=== PATIENT | male | born 1975 | race Caucasian/White ===

== ENCOUNTER 2017-09-01 04:50 | Emergency (ER) | payer SELFPAY ==
[2017-09-01 04:54] VITALS: BP 136/81; BMI 43.0
--- NOTE | 2017-09-01 05:20 | DR.GENAD ---
HPI - PCP Primary Care Physician: DENIA BURNETTE - Complaint/Symptoms Chief Complaint Doctors Comments: He came in to the E.D. to be seen because his glucmeter at home is reading high. He states that when this happens the BS is usually over 600. He should be taken Metformin 1000 mg BID. He is not compliant with this, nor with his diet, nr with accucheck. His last PCP's o.v. was in May 2017. Otherwise he has no other c/o. Chief Complaint:: "MY SUGAR IS TOO HIGH. IT READ HIGH ON MY METER WHICH IS OVER 600.I GUESS MY DOUBLE HELPING OF PASTA YESTERDAY , DIDN'T HELP ME ANY. I AIN'T SUPPOSE TO EAT IT ANYWAY." - Nurses notes reviewed Nurses Notes Review: Yes - Source History Provided: Patient - Mode of Arrival Mode of Arrival: Ambulatory - Timing Onset of Chief Complaint: 09/01/17 PMH - PMH Past Medical History: Yes Past Medical History: Diabetes, Dyslipidemia Past Surgical History: No Surgical History: No History - Family History History of Family Medical Conditions: Yes Family Medical History: Diabetes Mellitus - Social History Does patient currently use any type of tobacco product: No Have you used tobacco products in the last 12 months: No Type of Tobacco Use: Cigarettes Does any household member use tobacco: No Alcohol Use: Occasionally Do you use any recreational Drugs:: No Lives With: Alone Lives Where: Home - infectious screening Have you traveled outside the country in the last 6 months?: No Isolation: Standard ROS - Review of Systems Constitutional: No Symptoms Reported Eyes: No Symptoms Reported ENTM: No Symptoms Reported Respiratoy: No Symptoms Reported Cardiovascular: No Symptoms Reported Gastrointestinal/Abdominal: No Symptoms Reported Genitourinary: No Symptoms Reported Neurological: No Symptoms Reported Musculoskeletal: No Symptoms Reported Integumentary: No Symptoms Reported Hematologic/Lymphatic: No Symptoms Reported Endocrine: No Symptoms Reported Psychiatric: No Symptoms Reported All Other Systems: Reviewed and Negative PE - Vital Signs Vitals: Temperature 97.6 F Pulse Rate 109 Respiratory Rate 18 Blood Pressure 136/81 O2 Sat by Pulse Oximetry 98 - General Limitations: No Limitations General Appearance: Alert, In No Apparent Distress - Head Head Exam: Normal Inspection - Eyes Eye exam: Normal Appearance - ENT ENT Exam: Normal Exam - Neck Neck Exam: Normal Inspection - Chest Chest Inspection: Normal Inspection - Respiratory Respiratory Exam: Normal Lung Sounds Bilat - Cardiovascular Cardiovascular Exam: Regular Rate, Normal Rhythm - Abdominal Exam Abdominal Exam: Normal Inspection, Normal Bowel Sounds, Soft - Extremities Extremities Exam: Normal Inspection - Back Back Exam: Normal Inspection - Neurologic Neurological Exam: Alert, Oriented X3, CN II-XII Intact - Psychiatric Psychiatric Exam: Normal Affect, Normal Mood - Skin Skin Exam: Warm, Dry, Intact, Normal Color Course - Education/Counseling Education/Counseling: Patient, Education, Counseling Educated On: Treatment, Diagnosis, Prognosis, Needs for Follow Up ROR - Labs Reviewed Result Diagrams: 09/01/17 05:26 Laboratory: Sodium 132 mmol/L (136-145) L 09/01/17 05:26 Corrected Sodium 141 mmol/L (136-145) 09/01/17 05:26 Potassium 4.1 mmol/L (3.5-5.1) 09/01/17 05:26 Chloride 95 mmol/L (98-107) L 09/01/17 05:26 Carbon Dioxide 25.9 mmol/L (21-32) 09/01/17 05:26 BUN 12 mg/dL (7-18) 09/01/17 05:26 Creatinine 1.16 mg/dL (0.70-1.30) 09/01/17 05:26 Est GFR (MDRD) Af Amer > 60 (>60) 09/01/17 05:26 Est GFR (MDRD) Non-Af > 60 (>60) 09/01/17 05:26 Glucose 466 mg/dL (65-99) H 09/01/17 05:26 Calcium 9.2 mg/dL (8.5-10.1) 09/01/17 05:26 Acetone, Semi-Quant Negative (NEGATIVE) 09/01/17 05:26 - Diagnosis Discharge Problem: Uncontrolled diabetes mellitus - Discharge Plan Disposition: HOME, SELF-CARE Condition: Stable - Follow ups/Referrals Follow ups/Referrals: DENIA BURNETTE [Primary Care Provider] - 3 days - Instructions
[2017-09-01 05:42] LABS: BLOOD UREA NITROGEN 12 mg/dL (7-18); CALCIUM 9.2 mg/dL (8.5-10.1); CARBON DIOXIDE 25.9 mmol/L (21-32); CHLORIDE 95 mmol/L (98-107); COR NA(FOR HYPERGLY) 141 mmol/L (136-145); CREATININE 1.16 mg/dL (0.70-1.30); SODIUM 132 mmol/L (136-145); eGFR BLACK RACES > 60 (>60); eGFR NON BLACK RACES > 60 (>60)
[2017-09-01] MEDS ORDERED: HumuLIN R SUBCUT ONE ×2 (05:44→07:33)
[2017-09-01] MEDS ORDERED: HumuLIN R ONE ×2 (05:46→07:39)
[2017-09-01 05:51] LABS: SERUM ACETONE NEGATIVE (NEGATIVE)
[2017-09-01] MEDS ORDERED: SNACK - Diabetic Appropriate PO SCH (20:00)
== END 2017-09-01 08:19 | disposition home or self-care (01) ==
LOC: ER 04:50
DX: E10.9 Type 1 diabetes mellitus without complications (principal)
CPT/HCPCS: 36415; 80048; 82009; 96365; 96372; 96374; 99282; 99283; J1815